=== PATIENT | female | born 1990 ===

== ENCOUNTER 2017-03-22 18:54 | Emergency (ER) | payer SELFPAY ==
[2017-03-22 19:15] VITALS: BP 130/69; RESP 16; O2SAT 100
--- NOTE | 2017-03-22 19:48 | ED PDOC ---
HPI: General Adult Time Seen by Provider: 03/22/17 19:30 Chief Complaint (Nursing): ENT Problem Chief Complaint (Provider): ENT Problem History Per: Patient History/Exam Limitations: no limitations Onset/Duration Of Symptoms: Days (x3 days) Current Symptoms Are (Timing): Still Present Additional Complaint(s): 26 y/o female presents to the emergency department with a complaint of a right- sided throat pain with fever and drooling x3 days. Denies nausea, vomiting, or abdominal pain. Past Medical History Reviewed: Historical Data, Nursing Documentation, Vital Signs Vital Signs: Last Vital Signs Temp 100.2 F H 03/22/17 20:30 Pulse 129 H 03/22/17 19:12 Resp 16 03/22/17 19:12 BP 130/69 03/22/17 19:12 Pulse Ox 100 03/22/17 20:08 - Medical History PMH: No Chronic Diseases - Surgical History Surgical History: No Surg Hx - Family History Family History: States: No Known Family Hx - Allergies Allergies/Adverse Reactions: Allergies Allergy/AdvReac Type Severity Reaction Status Date / Time No Known Allergies Allergy Verified 03/22/17 19:12 Review of Systems ROS Statement: Except As Marked, All Systems Reviewed And Found Negative Constitutional: Positive for: Fever ENT: Positive for: Throat Pain (Right-sided hurts more than the left side), Other (Drooling) Gastrointestinal: Negative for: Nausea, Vomiting, Abdominal Pain Physical Exam - Reviewed Nursing Documentation Reviewed: Yes Vital Signs Reviewed: Yes - Physical Exam Appears: Positive for: Non-toxic, No Acute Distress Head Exam: Positive for: ATRAUMATIC, NORMOCEPHALIC Skin: Positive for: Normal Color, Warm, Dry ENT: Positive for: Pharyngeal Erythema, Tonsillar Exudate, Tonsillar Swelling, Other (Uvula is swollen). Negative for: Normal ENT Inspection Cardiovascular/Chest: Positive for: Regular Rate, Rhythm. Negative for: Murmur Respiratory: Positive for: Normal Breath Sounds. Negative for: Accessory Muscle Use, Respiratory Distress Neurologic/Psych: Positive for: Alert, Oriented - ECG O2 Sat by Pulse Oximetry: 100 (RA) Pulse Ox Interpretation: Normal Medical Decision Making Medical Decision Making: Time: 19:30 Initial impression: Strep throat Initial plan: --ED Urine (POC) --Dexamethasone 10mg IM --Motrin 600 mg PO --Rapid Strep Group --Revaluation strep: (+) will tx in ED with deacdron IM and d/c on amoxicillin 500mg BID x 7 days VS improved inED pt advised if worsened to return to ED. Scribe Attestation: Documented by Sun Martinez, acting as a scribe for Catie Kimbrough PA-C. Provider Scribe Attestation: All medical record entries made by the Scribe were at my direction and personally dictated by me. I have reviewed the chart and agree that the record accurately reflects my personal performance of the history, physical exam, medical decision making, and the department course for this patient. I have also personally directed, reviewed, and agree with the discharge instructions and disposition. Disposition - Clinical Impression Clinical Impression: Streptococcal sore throat - Patient ED Disposition Is Patient to be Admitted: No Counseled Patient/Family Regarding: Studies Performed, Diagnosis, Need For Followup, Rx Given - Disposition Disposition: Routine/Home Disposition Time: 20:40 Condition: STABLE Instructions: Strep Throat (ED) Forms: [facility] ED School/Work Excuse Print Language: WELSH
[2017-03-22 20:31] VITALS: TEMP 100.2
[2017-03-22 21:06] VITALS: PULSE 108
== END 2017-03-22 21:11 | disposition home or self-care (01) ==
LOC: H.ER 18:54
DX: J02.0 Streptococcal pharyngitis (principal)
CPT/HCPCS: 81025; 87430; 96372; 99283; J1100

== ENCOUNTER 2018-04-22 00:34 | Emergency (ER) | payer SELFPAY ==
[2018-04-22 01:09] VITALS: O2SAT 100
[2018-04-22] MEDS ORDERED: Famotidine 20mg/50ml Premix IVPB STA (01:33)
[2018-04-22] MEDS ORDERED: Sodium Chloride 0.9% 1,000 ML IV STA (01:33)
[2018-04-22] MEDS ORDERED: Famotidine 20mg/50ml 20 MG/50 ML BAG IVPB ONE (01:38)
--- NOTE | 2018-04-22 01:52 | ED PDOC ---
HPI: Hypertension/Hypotension Time Seen by Provider: 04/22/18 00:40 Chief Complaint (Nursing): Palpitations Chief Complaint (Provider): Palpitations History Per: Patient History/Exam Limitations: no limitations Onset/Duration Of Symptoms: Hrs (earlier today) Current Symptoms Are (Timing): Still Present Additional Complaint(s): 28 year old female presents to ED with complaints of palpitations earlier today and has no past medical history. Patient states she is undergoing extreme dieting and has not eaten all day. Notes onset of symptoms after taking a caffeinated herbal supplement earlier today. (+) generalized weakness, (-) fever , nausea, vomiting, or chest pain. PCP: None Past Medical History Reviewed: Historical Data, Nursing Documentation, Vital Signs Vital Signs: Last Vital Signs Temp 97.5 F L 04/22/18 01:07 Pulse 82 04/22/18 01:07 Resp 16 04/22/18 01:07 BP 140/79 04/22/18 01:07 Pulse Ox 100 04/22/18 01:07 - Medical History PMH: No Chronic Diseases - Surgical History Surgical History: Denies: No Surg Hx - Family History Family History: States: Unknown Family Hx - Social History Current smoker - smoking cessation education provided: No Alcohol: None Drugs: Denies - Home Medications Home Medications: Ambulatory Orders Medication Instructions Recorded Amoxicillin 500 mg PO BID #14 tab 03/22/17 - Allergies Allergies/Adverse Reactions: Allergies Allergy/AdvReac Type Severity Reaction Status Date / Time No Known Allergies Allergy Verified 03/22/17 19:12 Review of Systems ROS Statement: Except As Marked, All Systems Reviewed And Found Negative Constitutional: Positive for: Weakness. Negative for: Fever Cardiovascular: Positive for: Palpitations. Negative for: Chest Pain Gastrointestinal: Negative for: Nausea, Vomiting Physical Exam - Reviewed Nursing Documentation Reviewed: Yes Vital Signs Reviewed: Yes - Physical Exam Appears: Positive for: Non-toxic, No Acute Distress (appears weak) Skin: Positive for: Normal Color, Warm, Dry Eye Exam: Positive for: Normal appearance, EOMI, PERRL ENT: Negative for: Normal ENT Inspection (dry mucous membranes) Neck: Positive for: Normal Cardiovascular/Chest: Positive for: Regular Rate, Rhythm. Negative for: Murmur Respiratory: Positive for: Normal Breath Sounds. Negative for: Respiratory Distress Gastrointestinal/Abdominal: Positive for: Normal Exam, Soft. Negative for: Tenderness Extremity: Positive for: Normal ROM Neurologic/Psych: Positive for: Alert, Oriented. Negative for: Motor/Sensory Deficits - Laboratory Results Result Diagrams: 04/22/18 02:00 04/22/18 02:00 - ECG O2 Sat by Pulse Oximetry: 100 (RA) Pulse Ox Interpretation: Normal Medical Decision Making Medical Decision Makin Initial impression: dehydration due to extreme dieting rule out electrolyte abnormality Initial plan: * Labs * Trop I * NS IV * Pepcid 20mg IVPB * Re-eval 0300 Labs reviewed: LFTs Trop: negative * Re-eval cxr appears negative for acute process pt aware of lab results and feels improved, tolerated po in the ED. stable for dc and outpt follow up. Scribe Attestation: Documented by Ana Miles acting as a scribe for Oscar Ratliff MD. Scribe Attestation: All medical record entries made by the Scribe were at my direction and personally dictated by me. I have reviewed the chart and agree that the record accurately reflects my personal performance of the history, physical exam, medical decision making, and the department course for this patient. I have also personally directed, reviewed, and agree with the discharge instructions and disposition. Disposition - Clinical Impression Clinical Impression: Dehydration - Patient ED Disposition Is Patient to be Admitted: No Counseled Patient/Family Regarding: Studies Performed, Diagnosis, Need For Followup - Disposition Referrals: [facility] [Outside] [facility] [Outside] Disposition: Routine/Home Disposition Time: 02:40 Condition: IMPROVED Additional Instructions: follow up with your primary doctor in 1-2 days stay hydrated and avoid weight loss tablets return to the ED with any worsening or concerning symptoms Instructions: Dehydration, Adult (DC) Forms: [facility] (Welsh)
[2018-04-22 02:03] VITALS: RESP 18; TEMP 98.1
[2018-04-22 02:20] LABS: BASO # 0.1 K/uL (0.0-0.2); BASO % 0.5 % (0.0-2.0); EOS # 0.1 K/uL (0.0-0.7); HEMOGLOBIN 12.8 g/dL (12.0-16.0); LYMPH # 1.7 K/uL (1.0-4.3); LYMPH % 15.3 % (20.0-40.0); MEAN CELL VOLUME 88.2 fl (81.0-99.0); MEAN CORPUSCULAR HEMOGLOBIN 30.4 pg (27.0-31.0); MEAN CORPUSCULAR HGB CONC 34.5 g/dL (33.0-37.0); MEAN PLATELET VOLUME 8.1 fl (7.2-11.7); MONO # 0.4 K/uL (0.0-0.8); MONO % 3.6 % (0.0-10.0); NEUT # 8.7 K/uL (1.8-7.0); NEUT % 79.6 % (50.0-75.0); RBC 4.19 Mil/uL (3.80-5.20); RED CELL DISTRIBUTION WIDTH 12.6 % (11.5-14.5); WHITE BLOOD COUNT 10.9 K/uL (4.8-10.8)
[2018-04-22 02:27] LABS: ALB/GLOB RATIO 1.1 (1.0-2.1); ALBUMIN 4.5 g/dL (3.5-5.0); ALT/SGPT 98 U/L (9-52); AST/SGOT 84 U/L (14-36); BLOOD UREA NITROGEN 7 mg/dl (7-17); CALCIUM 9.6 mg/dL (8.4-10.2); GFR AFRICAN-AMERICAN > 60; GFR NON-AFRICAN AMERICAN > 60
[2018-04-22 02:54] VITALS: BP 116/79; PULSE 76
--- NOTE | 2018-04-22 09:28 | RAD ---
HISTORY: chest pain COMPARISON: No prior. TECHNIQUE: Chest PA and lateral FINDINGS: LUNGS: No active pulmonary disease. PLEURA: No significant pleural effusion identified. No pneumothorax apparent. CARDIOVASCULAR: Normal. OSSEOUS STRUCTURES: No significant abnormalities. VISUALIZED UPPER ABDOMEN: Normal. OTHER FINDINGS: None. IMPRESSION: No acute cardiopulmonary disease appreciated.
== END 2018-04-22 04:40 | disposition home or self-care (01) ==
LOC: H.ER 00:34
DX: E86.0 Dehydration (principal); R00.2 Palpitations; I10 Essential (primary) hypertension
CPT/HCPCS: 71046; 80053; 81025; 84484; 85025; 99285; J7030